=== PATIENT | male | born 1970 | race Caucasian/White ===

== ENCOUNTER 2016-11-07 10:24 | Emergency (ER) | payer MEDICAID ==
[2016-11-07 10:36] VITALS: BP 152/92
--- NOTE | 2016-11-07 11:09 | EDM.PDOC ---
[id number]: CHEST PAINS Time Seen by Provider: 11/07/16 11:00 Source: Reports: Patient History Limitations: Reports: No limitations - History of Present Illness INITIAL COMMENTS - FREE TEXT/NARRATIVE: 45-year-old male with a left-sided pleuritic chest pain for the past 2 days. It hurts to take a breath, pain radiates from his left anterior chest up into his left shoulder. It bothered him to lay on his left side while sleeping. He has not had previous symptoms similar to this and has had no fever or chills, shortness of breath or cough. He called the clinic to be seen and they sent him in to the emergency room. Severity: mild Location, General: Reports: chest Quality: Reports: Sharp Worsens with: Reports: Breathing, Other (Laying on left side) Associated Symptoms: Reports: denies other symptoms - Related Data Allergies/ADRs: Allergies Allergy/AdvReac Type Severity Reaction Status Date / Time ziban Allergy Hives Uncoded 11/07/16 10:37 Home Meds: Home Meds Multivitamin with Minerals [Multiple Vitamin] 1 tab PO DAILY 11/07/16 [History] Testosterone [Androgel] 5 gm TD DAILY 11/07/16 [History] Past Medical History Gastrointestinal History: Reports: Irritable bowel syndrome Genitourinary History: Reports: Renal calculus Neurological History: Reports: Concussion Dermatologic History: Reports: Other (see below) Other Dermatologic History: acne - Infectious Disease History Infectious Disease History: Reports: Chicken pox - Past Surgical History HEENT Surgical History: Reports: SIMON Social & Family History - Tobacco Use Smoking Status *Q: Current Every Day Smoker Years of Tobacco use: 30 Packs/Tins Daily: 1 Used Tobacco, but Quit: No Second Hand Smoke Exposure: Yes - Caffeine Use Caffeine Use: Reports: Soda - Alcohol Use Days Per Week of Alcohol Use: 4 Number of Drinks Per Day: 4 Total Drinks Per Week: 16 - Recreational Drug Use Recreational Drug Use: No ED ROS GENERAL - Review of Systems Review Of Systems: See Below Constitutional: Denies: fever, chills, malaise HEENT: Reports: No symptoms Respiratory: Reports: Pleuritic Chest Pain. Denies: Shortness of Breath ( Although he feels like he can't get a complete breath), Cough Cardiovascular: Reports: Chest pain Endocrine: Denies: fatigue GI/Abdominal: Denies: Abdominal pain, Nausea, Vomiting Skin: Reports: no symptoms Neurological: Reports: No Symptoms Psychiatric: Reports: No symptoms ED EXAM, GENERAL - Physical Exam Exam: See Below Exam Limited By: No limitations General Appearance: alert, no apparent distress Eye Exam: bilateral eye: normal inspection Respiratory/Chest: no respiratory distress, lungs clear, other (He has a definite increase in pain with lateral compression of the left lower chest) Cardiovascular: regular rate, rhythm GI/Abdominal: soft, non tender Extremities: No: pedal edema Neurological: alert, oriented Psychiatric: normal affect, normal mood Skin Exam: Warm, Dry Course - Vital Signs Last Recorded V/S: Last Vital Signs Temp 99.7 F 11/07/16 10:35 Pulse 94 11/07/16 10:35 Resp 20 11/07/16 10:35 BP 152/92 H 11/07/16 10:35 Pulse Ox 97 11/07/16 10:35 - Re-Assessments/Exams Free Text/Narrative Re-Assessment/Exam: 11/07/16 11:09 A two-view chest x-ray was obtained. 11/07/16 11:24 Chest x-ray was completely normal. The patient is going to increase his anti- inflammatory intake to 600-800 mg of ibuprofen 3 times a day through the weekend and return if worsening. Continue activity as tolerated. Departure - Departure Time of Disposition: 11:45 Disposition: Home, Self-Care 01 Condition: good Clinical Impression: Pleurisy, Atypical chest pain Instructions: Pleurisy, [id number] Referrals: PCP,None [Primary Care Provider] - Forms: ED Department Discharge Care Plan Goals: Take 3-4 ibuprofen 3 times a day through the weekend. Continue activity as tolerated and return anytime if worsening or concerns. Recheck next week if not improving satisfactorily.
--- NOTE | 2016-11-07 11:48 | CR ---
Chest 2V FINDINGS: The heart and vascular structures are normal in appearance. No infiltrates or effusions ar e demonstrated. The skeletal structures are unremarkable. IMPRESSION: Negative exam.
== END 2016-11-07 11:30 | disposition home or self-care (01) ==
LOC: JP.ED 10:24
DX: R09.1 Pleurisy (principal); R07.89 Other chest pain; F17.210 Nicotine dependence, cigarettes, uncomplicated; Z88.8 Allergy status to other drugs, medicaments and biological substances; Z79.899 Other long term (current) drug therapy
CPT/HCPCS: 71020; 71020-26; 99285

== ENCOUNTER 2022-12-04 00:54 | Emergency (ER) | payer MEDICAID ==
[2022-12-04 01:10] VITALS: BP 136/86; PULSE 87
[2022-12-04] MEDS ORDERED: HYDROmorphone 1 MG/ML Syringe IM ONE (01:12)
[2022-12-04 01:41] LABS: APPEARANCE,URINE CLEAR (CLEAR); BILIRUBIN,URINE NEGATIVE (NEGATIVE); COLOR,URINE YELLOW (YELLOW); GLUCOSE,URINE NEGATIVE (NEGATIVE); KETONES,URINE 15 mg/dL (NEGATIVE); LEUKOCYTE ESTERASE,URINE NEGATIVE (NEGATIVE); NITRITE,URINE NEGATIVE (NEGATIVE); OCCULT BLOOD,URINE MODERATE (NEGATIVE); PROTEIN,URINE NEGATIVE (NEGATIVE); UROBILINOGEN,URINE 0.2 EU/dL (0.2-1.0)
[2022-12-04 01:57] LABS: BACTERIA,URINE FEW; EPITHELIAL CELLS,URINE FEW; MUCUS,URINE RARE; WBC,URINE 0-5 (0-5)
== END 2022-12-04 01:43 | disposition home or self-care (01) ==
LOC: JP.ED 00:54
DX: N20.0 Calculus of kidney (principal); F17.210 Nicotine dependence, cigarettes, uncomplicated; Z88.8 Allergy status to other drugs, medicaments and biological substances
CPT/HCPCS: 81001; 99284

== ENCOUNTER 2022-12-04 07:38 | Emergency (ER) | payer MEDICAID ==
[2022-12-04 08:18] LABS: APPEARANCE,URINE CLEAR (CLEAR); BILIRUBIN,URINE NEGATIVE (NEGATIVE); COLOR,URINE YELLOW (YELLOW); GLUCOSE,URINE NEGATIVE (NEGATIVE); KETONES,URINE NEGATIVE (NEGATIVE); LEUKOCYTE ESTERASE,URINE NEGATIVE (NEGATIVE); NITRITE,URINE NEGATIVE (NEGATIVE); OCCULT BLOOD,URINE LARGE (NEGATIVE); PH,URINE 5.5 (5.0-8.0); PROTEIN,URINE NEGATIVE (NEGATIVE); UROBILINOGEN,URINE 0.2 EU/dL (0.2-1.0)
[2022-12-04 08:24] LABS: BASOPHILS ABSOLUTE AUTO 0.05 K/uL (0.00-0.10); BASOPHILS PERCENT AUTO 0.4 % (0.1-1.3); EOSINOPHILS ABSOLUTE AUTO 0.07 K/uL (0.00-0.40); EOSINOPHILS PERCENT AUTO 0.6 % (0.0-5.4); HEMATOCRIT 41.8 % (38.4-49.7); HEMOGLOBIN 14.9 g/dL (12.9-16.9); IMMATURE GRAN ABSOLUTE AUTO 0.05 K/uL (0.00-0.23); IMMATURE GRAN PERCENT AUTO 0.4 % (0.0-0.7); LYMPHOCYTES ABSOLUTE AUTO 2.06 K/uL (0.8-3.3); LYMPHOCYTES PERCENT AUTO 17.5 % (11.4-47.7); MEAN CORPUSCULAR HGB CONC 35.6 g/dL (31.6-35.5); MEAN CORPUSCULAR VOLUME 89.7 fL (81.4-99.0); MONOCYTES ABSOLUTE AUTO 1.04 K/uL (0.20-0.90); MONOCYTES PERCENT AUTO 8.8 % (3.3-12.6); NEUTROPHILS ABSOLUTE AUTO 8.52 K/uL (1.0-7.6); NEUTROPHILS PERCENT AUTO 72.3 % (40.0-78.1); PLATELET COUNT,PLT 236 K/uL (130-375); RED BLOOD CELL COUNT 4.66 M/uL (4.14-5.76); WHITE BLOOD CELL COUNT,WBC 11.8 K/uL (3.2-11.0)
[2022-12-04 08:32] LABS: AMORPHOUS SEDIMENT,URINE RARE; BACTERIA,URINE NOT SEEN; EPITHELIAL CELLS,URINE NOT SEEN; MUCUS,URINE NOT SEEN; WBC,URINE 0-5 (0-5)
[2022-12-04 08:39] LABS: CALCIUM 8.6 mg/dL (8.5-10.1); CREATININE 1.8 mg/dL (0.8-1.3); EST CRCL DRUG DOSING (CG) 47.5 mL/min; POTASSIUM,K 3.9 mmol/L (3.6-5.2)
[2022-12-04 08:46] LABS: ANION GAP 12.9 mmol/L (5.0-14.0)
[2022-12-04 10:28] VITALS: BP 127/85; PULSE 67
== END 2022-12-04 10:42 | disposition home or self-care (01) ==
LOC: JP.ED 07:38
DX: N13.2 Hydronephrosis with renal and ureteral calculous obstruction (principal); F17.210 Nicotine dependence, cigarettes, uncomplicated; Z88.8 Allergy status to other drugs, medicaments and biological substances
CPT/HCPCS: 36415; 74176; 80048; 81001; 85025; 99284